=== PATIENT | male | born 1955 | race American Indian/Alaskan Native ===

== ENCOUNTER 2019-05-16 23:20 | Emergency (ER) | payer MEDICARE ==
--- NOTE | 2019-05-16 23:37 | Emergency Department Report ---
ED Dizziness HPI - General Stated Complaint: AMS Time Seen by Provider: 05/16/19 23:29 Source: patient, EMS Mode of arrival: Stretcher Limitations: No Limitations - History of Present Illness Initial Comments: Mr. Javier is a 64-year-old male with history of CVA, congestive heart failure who presents with dizziness fall. He told his family member that he was dizzy. He fell to the ground. No LOC. He seemed confused. Currently he is alert and oriented. He is able to answer all questions. Recently discharged from [facility], [place] 1 week ago with diagnosis of "encephalopathy". No current use of tobacco or alcohol use. Does have a previous history of polysubstance abuse and alcoholism. Did have history of alcohol withdrawal seizures. MD Complaint: dizziness, lightheadedness -: Sudden, This afternoon Timing: sudden onset Description: lightheadedness History of Trauma: No Severity: mild Improves With: rest Worsens With: nothing Associated Symptoms: denies other symptoms - Related Data Allergies Allergy/AdvReac Type Severity Reaction Status Date / Time No Known Allergies Allergy Unverified 05/16/19 23:40 ED Review of Systems ROS: Stated complaint: AMS Other details as noted in HPI Comment: All other systems reviewed and negative Constitutional: denies: fever, malaise Cardiovascular: denies: chest pain Endocrine: denies: excessive sweating Gastrointestinal: denies: abdominal pain, nausea, vomiting Neurological: denies: headache ED Past Medical Hx - Past Medical History Previous Medical History?: Yes Hx CVA: Yes Hx Congestive Heart Failure: Yes Hx Seizures: Yes - Social History Smoking Status: Former Smoker Substance Use Type: Other (Previous history of polysubstance abuse) ED Physical Exam - General General appearance: alert, in no apparent distress - Head Head exam: Present: atraumatic, normocephalic - Eye Eye exam: Present: normal appearance - ENT ENT exam: Present: mucous membranes moist - Neck Neck exam: Present: normal inspection, full ROM - Respiratory Respiratory exam: Present: normal lung sounds bilaterally. Absent: respiratory distress, wheezes, rales - Cardiovascular Cardiovascular Exam: Present: regular rate, normal rhythm, normal heart sounds. Absent: systolic murmur, diastolic murmur, rubs, gallop - GI/Abdominal GI/Abdominal exam: Present: soft, normal bowel sounds. Absent: distended, tenderness, guarding, rebound - Rectal Rectal exam: Present: deferred - Extremities Exam Extremities exam: Present: normal inspection - Back Exam Back exam: Present: normal inspection - Neurological Exam Neurological exam: Present: alert, oriented X3 - Expanded Neurological Exam Expanded Patient oriented to: Present: person, place, time Speech: Present: fluid speech Cranial nerves: EOM's Intact: Normal, Gag Reflex: Normal Cerebellar function: Finger to Nose: Normal Upper motor neuron: Antonio Neglect: Normal Sensory exam: Upper Extremity Light Touch: Normal Motor strength exam: RUE: 5, LUE: 5, RLE: 5, LLE: 5 Best Eye Response (Radhika): (4) open spontaneously Best Motor Response (Radhika): (6) obeys commands Best Verbal Response (Radhika): (5) oriented Radhika Total: 15 - Psychiatric Psychiatric exam: Present: normal affect, normal mood - Skin Skin exam: Present: warm, dry, intact, normal color. Absent: rash ED Course Vital Signs 05/16/19 23:35 Temperature 98.9 F Pulse Rate 79 Respiratory 25 H Rate Blood Pressure 135/104 [Left] O2 Sat by Pulse 99 Oximetry ED Medical Decision Making - Lab Data Result diagrams: 05/16/19 23:43 05/16/19 23:43 Laboratory Results - last 24 hr 05/16/19 05/16/19 23:43 23:43 WBC 12.4 H RBC 5.61 H Hgb 12.6 Hct 39.6 MCV 71 L MCH 22 L MCHC 32 RDW 14.9 Plt Count 320 Lymph % (Auto) 15.2 [place] % (Auto) 9.9 H Eos % (Auto) 0.7 Baso % (Auto) 0.6 Lymph # 1.9 [place] # 1.2 H Eos # 0.1 Baso # 0.1 Seg Neutrophils % 73.6 H Seg Neutrophils # 9.1 H Sodium 139 Potassium 3.5 L Chloride 100.5 Carbon Dioxide 23 Anion Gap 19 BUN 18 Creatinine 1.4 Estimated GFR > 60 BUN/Creatinine Ratio 13 Glucose 113 H Calcium 9.5 Total Bilirubin 0.50 AST 17 ALT 11 Alkaline Phosphatase 136 H Total Protein 7.7 Albumin 3.8 L Albumin/Globulin Ratio 1.0 - EKG Data 05/16/19 23:59 EKG obtained 2354 Normal sinus rhythm rate 84 bpm normal axis normal QT interval PVCs present poor R wave progression in the anterior leads - Medical Decision Making Mr. Javier presents with lightheadedness dizziness fall. No evidence of trauma due to fall. He is neurologically intact. He was able to get up and walk on his own. I do not suspect arrhythmia. No signs of infection. Mild leukocytosis seen on labs. He is discharged home. He is currently symptom- free. Critical care attestation.: If time is entered above; I have spent that time in minutes in the direct care of this critically ill patient, excluding procedure time. ED Disposition Clinical Impression: Lightheadedness, Fall Disposition: DC-01 TO HOME OR SELFCARE Is pt being admited?: No Does the pt Need Aspirin: No Condition: Stable Instructions: Lightheadedness (ED) Referrals: SHARON DUQUE MD [Staff Physician] - 3-5 Days
[2019-05-16 23:55] LABS: Basophils # (Auto) 0.1 K/mm3 (0.0-0.1); Basophils % (Auto) 0.6 % (0.0-1.8); Eosinophils # (Auto) 0.1 K/mm3 (0.0-0.4); Eosinophils % (Auto) 0.7 % (0.0-4.3); Hematocrit 39.6 % (35.5-45.6); Hemoglobin 12.6 gm/dl (11.8-15.2); Lymphocytes # (Auto) 1.9 K/mm3 (1.2-5.4); Lymphocytes % (Auto) 15.2 % (13.4-35.0); Mean Corpuscular HGB Conc 32 % (32-34); Mean Corpuscular Volume 71 fl (84-94); Monocytes # (Auto) 1.2 K/mm3 (0.0-0.8); Monocytes % (Auto) 9.9 % (0.0-7.3); Platelet Count 320 K/mm3 (140-440); Red Blood Count 5.61 M/mm3 (3.65-5.03); Red Cell Distribution Width 14.9 % (13.2-15.2)
[2019-05-17 00:16] LABS: Alanine Aminotransferase 11 units/L (7-56); Albumin 3.8 g/dL (3.9-5); BUN/Creatinine Ratio 13; Blood Urea Nitrogen 18 mg/dL (9-20); Calcium 9.5 mg/dL (8.4-10.2); Hemolysis Index 21
[2019-05-17 05:04] VITALS: BP 130/88
== END 2019-05-17 05:09 | disposition home or self-care (01) ==
LOC: ED 23:20
DX: R42 Dizziness and giddiness (principal); I10 Essential (primary) hypertension; Z86.73 Personal history of transient ischemic attack (TIA), and cerebral infarction without residual deficits; Z87.891 Personal history of nicotine dependence
CPT/HCPCS: 36415; 80053; 85025; 93005; 93010; 99284

== ENCOUNTER 2020-06-07 14:09 | Emergency (ER) | payer MEDICARE ==
--- NOTE | 2020-06-07 17:29 | XRay Report ---
XR chest 1V ap INDICATION / CLINICAL INFORMATION: fall. COMPARISON: None available. FINDINGS: SUPPORT DEVICES: None. HEART /PULMONARY VASCULATURE: No significant abnormality. LUNGS / PLEURA: No significant pulmonary or pleural abnormality. No pneumothorax. ADDITIONAL FINDINGS: No significant additional findings. IMPRESSION: 1. No acute findings. Signer Name: Gamal Gimenez MD Signed: 06/07/2020 5:25 PM Workstation Name: [id number]
[2020-06-07 17:37] LABS: Basophils % (Auto) 0.1 % (0.0-1.8); Eosinophils % (Auto) 0.3 % (0.0-4.3); Hematocrit 39.7 % (35.5-45.6); Hemoglobin 12.6 gm/dl (11.8-15.2); Lymphocytes # (Auto) 1.5 K/mm3 (1.2-5.4); Lymphocytes % (Auto) 17.8 % (13.4-35.0); Mean Corpuscular HGB Conc 32 % (32-34); Mean Corpuscular Volume 75 fl (84-94); Monocytes # (Auto) 0.7 K/mm3 (0.0-0.8); Monocytes % (Auto) 8.7 % (0.0-7.3); Platelet Count 189 K/mm3 (140-440); Red Blood Count 5.33 M/mm3 (3.65-5.03)
[2020-06-07 17:47] LABS: BUN/Creatinine Ratio 10; Blood Urea Nitrogen 10 mg/dL (9-20); Hemolysis Index 16
--- NOTE | 2020-06-07 18:19 | Cat Scan Report ---
. CT BRAIN: 06/07/2020 INDICATION / CLINICAL INFORMATION: fall. COMPARISON: None available. FINDINGS: BRAIN/INTRACRANIAL STRUCTURES: Unenhanced CT images of the brain demonstrate no evidence of acute int racranial abnormality. Ventricles and sulci are prominent in size, consistent with pronounced diffuse cerebral atrophy. Extensive chronic white matter hypoattenuation is present throughout the cerebral hemispheric white m atter. There is evidence of more focal subcortical lacunar ischemic changes in the periventricular an d deep white matter laterally, as well as in the thalami and basal ganglia. There is no evidence of hemorrhage or mass. There are no abnormal extra-axial fluid collections. Atherosclerotic vascular calcifications are present in the distal internal carotid arteries and verte bral arteries. EXTRACRANIAL STRUCTURES: Unremarkable. IMPRESSION: No acute abnormality. Extensive chronic and age-related changes,. All CT scans at this location are performed using dose reduction to ALARA by means of automated expos ure control. Signer Name: Alphonso White MD Signed: 06/07/2020 6:15 PM Workstation Name: [id number]
--- NOTE | 2020-06-07 18:21 | Cat Scan Report ---
CT CERVICAL SPINE: 06/07/2020 INDICATION / CLINICAL INFORMATION: fall. COMPARISON: None available. FINDINGS: CT images of the cervical spine were obtained. Images are evaluated in the axial, coronal, and sagitt al planes. There is no evidence of acute abnormality. Bones are diffusely osteopenic. Degenerative disc space narrowing and osteophyte formation is present throughout the cervical spine. There is no evidence of canal central canal narrowing. 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 CRANIOCERVICAL JUNCTION: Unremarkable. PARASPINAL STRUCTURES: Unremarkable IMPRESSION: No acute abnormality. All CT scans at this location are performed using dose reduction to ALARA by means of automated expos ure control. Signer Name: Alphonso White MD Signed: 06/07/2020 6:16 PM Workstation Name: [id number]
[2020-06-07 18:25] LABS: Bilirubin,Urine NEG (Negative); Blood,Urine NEG (Negative); Color,Urine Yellow (Yellow); Mucus,Urine FEW /HPF; Protein,Urine <15 mg/dL mg/dL (Negative); Urobilinogen,Urine < 2.0 mg/dL (<2.0)
--- NOTE | 2020-06-07 19:41 | Emergency Department Report ---
ED Fall HPI - General Chief Complaint: Fall Stated Complaint: FALL Time Seen by Provider: 06/07/20 16:38 Source: patient, EMS Mode of arrival: Stretcher - History of Present Illness Initial Comments: 65 yo M, hx dementia, presents to ED s/p fall at home. Pt reportedly had some a ssociated urinary incontinence. Niece denies any hx of seizures. Pt lives with niece, states it is not uncommon for him to fall. Unknown LOC. Pt currently has no complaints. He is A&O x2. MD Complaint: fall -: This afternoon Fall From: standing Fall Witnessed: yes, by family Place Fall Occurred: home Loss of Consciousness: unsure Prolonged Down Time?: no Context: history of frequent falls Associated Symptoms: denies: headache, neck pain, chest paint, shortness of br eath, abdominal pain, lightheaded - Related Data Allergies Allergy/AdvReac Type Severity Reaction Status Date / Time No Known Allergies Allergy Unverified 05/16/19 23:40 ED Review of Systems ROS: Stated complaint: FALL Other details as noted in HPI Comment: All other systems reviewed and negative Constitutional: denies: fever Respiratory: denies: shortness of breath Cardiovascular: denies: chest pain Gastrointestinal: denies: abdominal pain, vomiting, diarrhea Neurological: denies: headache ED Past Medical Hx - Past Medical History Previous Medical History?: Yes Hx Hypertension: Yes Hx CVA: Yes Hx Congestive Heart Failure: Yes Hx Seizures: Yes Additional medical history: Blind left eye - Social History Smoking Status: Unknown if ever smoked ED Physical Exam - General Limitations: No Limitations General appearance: alert, in no apparent distress - Head Head exam: Present: atraumatic, normocephalic - Eye Eye exam: Present: normal appearance - ENT ENT exam: Present: mucous membranes moist - Neck Neck exam: Present: normal inspection - Respiratory Respiratory exam: Present: normal lung sounds bilaterally. Absent: respiratory distress - Cardiovascular Cardiovascular Exam: Present: regular rate, normal rhythm - GI/Abdominal GI/Abdominal exam: Present: soft. Absent: distended, tenderness - Extremities Exam Extremities exam: Present: normal inspection - Neurological Exam Neurological exam: Present: alert, CN II-XII intact. Absent: oriented X3 (oriented to self and place), motor sensory deficit - Psychiatric Psychiatric exam: Present: normal affect, normal mood - Skin Skin exam: Present: warm, dry, intact, normal color ED Course Vital Signs 06/07/20 06/07/20 06/07/20 16:44 16:45 17:00 Temperature Pulse Rate 59 L Respiratory 23 Rate Blood Pressure 200/105 O2 Sat by Pulse 100 98 100 Oximetry 06/07/20 06/07/20 06/07/20 17:16 17:30 17:46 Temperature Pulse Rate 64 60 59 L Respiratory 20 16 23 Rate Blood Pressure 176/101 176/101 176/106 O2 Sat by Pulse 100 100 100 Oximetry 06/07/20 06/07/20 06/07/20 18:08 18:16 18:29 Temperature 97.9 F Pulse Rate 60 63 Respiratory 17 19 Rate Blood Pressure 176/106 176/106 O2 Sat by Pulse 97 100 Oximetry 06/07/20 06/07/20 06/07/20 18:30 18:46 19:00 Temperature Pulse Rate 59 L 58 L 59 L Respiratory 21 20 18 Rate Blood Pressure 176/106 164/84 164/84 O2 Sat by Pulse 100 98 100 Oximetry 06/07/20 06/07/20 19:16 19:30 Temperature Pulse Rate 64 65 Respiratory 25 H 19 Rate Blood Pressure 176/89 176/89 O2 Sat by Pulse 99 100 Oximetry ED Medical Decision Making - Lab Data Result diagrams: 06/07/20 17:09 06/07/20 17:09 - EKG Data -: EKG Interpreted by Nh EKG shows normal: sinus rhythm, axis, QRS complexes, ST-T waves Rate: normal - EKG Data When compared to previous EKG there are: no significant change Interpretation: no acute changes - Radiology Data Radiology results: report reviewed, image reviewed - Medical Decision Making Patient sent to ED by family following fall at home. CT head and C-spine negative for any acute injury. Labs are normal. Chest x-ray is normal. UA shows no evidence of UTI. Vital signs are stable. Patient will be discharged home at this time. Return precautions given. - Differential Diagnosis Intracranial injury, UTI, pneumonia, dehydration Critical care attestation.: If time is entered above; I have spent that time in minutes in the direct care of this critically ill patient, excluding procedure time. ED Disposition Clinical Impression: Fall Disposition: DC-01 TO HOME OR SELFCARE Is pt being admited?: No Condition: Stable Instructions: Fall Prevention in the Home, Adult Referrals: PRIMARY CARE, [Primary Care Provider] - 3-5 Days Time of Disposition: 19:41
[2020-06-07 19:43] VITALS: BP 176/89
--- NOTE | 2020-06-08 17:12 | Electrocardiograph Report ---
[facility] Test Date: 2020-06-07 Test Time: 17:05:37 Pat Name: JERMAN ERIC Department: Room: Gender: M Results Technician: RADHA : 1955 Requested By: KATLIN JIM Order Number: [id number] Reading MD: Yvonne Kapadia Measurements Intervals [place] Rate: 62 P: 114 [place]: 214 QRS: 41 QRSD: 90 T: 183 QT: 412 QTc: 419 Interpretive Statements Sinus arrhythmia Atrial premature complex Borderline prolonged [place] interval Probable anterior infarct, age indeterminate Left ventricular tortuosity with repolarization abnormalities of LVH No previous ECG available for comparison Electronically Signed On 06-08-2020 17:12:05 EDT by Yvonne Kapadia
== END 2020-06-07 20:10 | disposition home or self-care (01) ==
LOC: ED 14:09
DX: R32 Unspecified urinary incontinence (principal); I11.0 Hypertensive heart disease with heart failure; I50.9 Heart failure, unspecified; R56.9 Unspecified convulsions; Z86.73 Personal history of transient ischemic attack (TIA), and cerebral infarction without residual deficits; W19.XXXA Unspecified fall, initial encounter; Y93.89 Activity, other specified; Y92.009 Unspecified place in unspecified non-institutional (private) residence as the place of occurrence of the external cause; Y99.8 Other external cause status
CPT/HCPCS: 36415; 70450; 71045; 72125; 80048; 81001; 84484; 85025; 93005